=== PATIENT | female | born 1960 | race Caucasian/White ===

== ENCOUNTER 2017-10-16 10:27 | Emergency (ER) | payer OTHER, BC | END 2017-10-16 12:09 | disposition home or self-care (01) | LOC: FTE 10:27 | DX: J06.9 Acute upper respiratory infection, unspecified (principal); Z79.82 Long term (current) use of aspirin | CPT/HCPCS: 71045; 99283-25 ==

== ENCOUNTER 2017-11-12 12:35 | Day surgery (SDC) | payer OTHER ==
[2017-11-12] MEDS ORDERED: LIDOCAINE 2% (SDV) 5 ML INJ (14:28)
[2017-11-12] MEDS ORDERED: PROPOFOL 60 ML (14:28)
== END 2017-11-12 16:01 | disposition home or self-care (01) ==
LOC: GIL 12:35
DX: Z12.11 Encounter for screening for malignant neoplasm of colon (principal); D12.2 Benign neoplasm of ascending colon; K64.8 Other hemorrhoids; I10 Essential (primary) hypertension; E78.5 Hyperlipidemia, unspecified; E66.9 Obesity, unspecified; Z68.27 Body mass index [BMI] 27.0-27.9, adult
CPT/HCPCS: 45380; 88305